=== PATIENT | male | born 1940 | race Caucasian/White ===

== ENCOUNTER → 2017-11-07 | Outpatient (CLI) | payer MEDICARE | LOC: M ONCR 09:55 | DX: C02.9 Malignant neoplasm of tongue, unspecified (principal); C06.0 Malignant neoplasm of cheek mucosa; C67.0 Malignant neoplasm of trigone of bladder | CPT/HCPCS: G0463 ==

== ENCOUNTER 2017-11-18 07:34 | Day surgery (SDC) | payer MEDICARE ==
[2017-11-18] MEDS: LR 1,000 ML IV (08:40)
[2017-11-18] MEDS ORDERED: fentaNYL 100 MCG/2 ML INJECTION (J3010) As Ordered (08:58)
[2017-11-18] MEDS ORDERED: PROPOFOL 200 MG/20 ML VIAL As Ordered (08:58)
[2017-11-18] MEDS ORDERED: MIDAZOLAM INJ 2 MG/2 ML VIAL (J2250) As Ordered (08:58)
[2017-11-18] MEDS: BUPIVACAINE HCL 0.25% 30 ML VIAL As Ordered (09:15)
[2017-11-18] MEDS: LIDOCAINE 1% SDV INJ 30 ML VIAL As Ordered (09:15)
[2017-11-18] MEDS ORDERED: METOCLOPRAMIDE INJ 10MG/2ML VIAL (J2765) As Ordered (09:45)
[2017-11-18] MEDS ORDERED: dexameTHASONE 4 MG/ML 1ML VIAL (J1100) As Ordered (13:54)
[2017-11-18] MEDS ORDERED: ONDANSETRON 4MG/2ML VIAL (J2405) As Ordered (13:54)
[2017-11-18] MEDS ORDERED: HYDROmorphone HCL 2 MG/ML 1ML VIAL (J1170) As Ordered (14:52)
[2017-11-18] MEDS ORDERED: ESMOLOL INJ 100MG/10ML VIAL As Ordered (15:03)
[2017-11-18] MEDS ORDERED: GLYCOPYRROLATE INJ 0.2 MG/ML 2 ML VIAL As Ordered (15:25)
[2017-11-18] MEDS ORDERED: PHENYLephrine HCL 500 MCG/5 ML (100MCG/ML) SYRINGE (J2370) As Ordered (17:10)
== END 2017-11-18 11:55 | disposition home or self-care (01) ==
LOC: M SDC 07:34
DX: C01 Malignant neoplasm of base of tongue (principal); I10 Essential (primary) hypertension; E78.5 Hyperlipidemia, unspecified; K21.9 Gastro-esophageal reflux disease without esophagitis; Z85.46 Personal history of malignant neoplasm of prostate; Z92.3 Personal history of irradiation; Z79.899 Other long term (current) drug therapy; G47.30 Sleep apnea, unspecified; Z79.82 Long term (current) use of aspirin; Z87.891 Personal history of nicotine dependence
CPT/HCPCS: 43246

== ENCOUNTER → 2017-11-19 | Outpatient (CLI) | payer MEDICARE | LOC: M PLARAD 12:12 | DX: C01 Malignant neoplasm of base of tongue (principal) | CPT/HCPCS: 78815 ==

== ENCOUNTER 2017-11-26 08:47 | Outpatient (RCR) | payer MEDICARE | END 2017-12-10 | LOC: M ONCR 08:47 | DX: C02.9 Malignant neoplasm of tongue, unspecified (principal); C06.2 Malignant neoplasm of retromolar area; C06.0 Malignant neoplasm of cheek mucosa | CPT/HCPCS: 77300 ==

== ENCOUNTER 2017-12-11 11:25 | Outpatient (RCR) | payer MEDICARE | END 2018-01-10 | LOC: M ONCR 11:25 | DX: C02.9 Malignant neoplasm of tongue, unspecified (principal); C06.2 Malignant neoplasm of retromolar area; C06.0 Malignant neoplasm of cheek mucosa | CPT/HCPCS: 77336 ==

== ENCOUNTER 2018-01-14 10:16 | Outpatient (RCR) | payer MEDICARE | END 2018-02-09 | LOC: M ONCR 10:16 | DX: C02.9 Malignant neoplasm of tongue, unspecified (principal); C06.2 Malignant neoplasm of retromolar area; C06.0 Malignant neoplasm of cheek mucosa | CPT/HCPCS: 77300 ==

== ENCOUNTER → 2018-02-26 | Outpatient (CLI) | payer MEDICARE ==
[~2018-02-26] MED LIST: ASPI1TAB15 PO; ATOR1TAB21 PO; LIDO1SOL7 PO; PANT40TA3 PO; SERT50TA PO; VALS1TAB47 PO
--- NOTE | 2018-02-27 15:03 | RADONC ---
RADIATION ONCOLOGY FOLLOWUP NOTE DATE: 02/26/2018 CHART NUMBER: [id number] DIAGNOSIS: Tongue cancer. 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 ECOG PERFORMANCE STATUS: 0. FOLLOWUP NOTE: Mr. 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 The patient presents today reporting that he is doing quite well with no complaints at this time related to his radiation therapy or disease other than some difficulty swallowing solid foods. The patient is able to eat and has not used his feeding tube at all over the past couple of weeks. He is able to take his pills and other medications by mouth. The patient's review of systems is positive for some difficulty swallowing dry solid foods but is otherwise noncontributory. He denies nausea, vomiting, fevers, chills, night sweats, diplopia, headaches, anxiety or depression, anorexia, weight loss, visual disturbances, chest pain, urinary or bowel difficulties, bone pain, or neurological problems. PHYSICAL EXAMINATION: The patient's skin is in good condition with no evidence of moist or dry desquamation present. His oral cavity shows no evidence of mucositis. There is no palpable preauricular, cervical, supraclavicular, infraclavicular or axillary lymphadenopathy present. His lungs are clear to auscultation and percussion. ASSESSMENT: The patient is clinically SORAIDA at this time. He is scheduled to be seen every [address] Snider. In light of the patient's close followup with Dr. Snider I have discharged him from our followup except on a as needed basis. He will also continue to be followed by his other physicians as well. cc: MD Christopher Curtis MD
== END ==
LOC: M ONCR 10:25
PROVIDERS: ATTEND Radiology Radiation Oncology
DX: C02.9 Malignant neoplasm of tongue, unspecified (principal); C06.2 Malignant neoplasm of retromolar area; C06.0 Malignant neoplasm of cheek mucosa

== ENCOUNTER → 2018-03-27 | Outpatient (REF) | payer MEDICARE ==
[2018-03-27 17:53] LABS: APPEARANCE, URINE CLEAR (CLEAR); BACTERIA, URINE AUTO NEGATIVE (NEGATIVE); BILIRUBIN, URINE AUTO NEGATIVE (NEGATIVE); BLOOD, URINE BLOOD NEGATIVE (NEGATIVE); COLOR, URINE YELLOW (YELLOW); GLUCOSE, URINE (UA) AUTO NEGATIVE (NEGATIVE); KETONE, URINE AUTO NEGATIVE (NEGATIVE); LEUKOCYTE ESTERASE, URINE AUTO NEGATIVE (NEGATIVE); MUCUS, URINE SMALL (NEGATIVE); NITRITE, URINE AUTO NEGATIVE (NEGATIVE); PROTEIN, URINE AUTO NEGATIVE (NEGATIVE); RBC, URINE AUTO 2 /HPF (0-3); SPECIFIC GRAVITY URINE AUTO 1.006 (1.002-1.035); SQUAMOUS EPITHELIAL CELL UR AU 0 /HPF (0-6); UROBILINOGEN, URINE AUTO 0.2 mg/dL (0.0-2.0); WBC, URINE AUTO 3 /HPF (0-3)
== END ==
LOC: M SMT 17:09
DX: N41.9 Inflammatory disease of prostate, unspecified (principal)
CPT/HCPCS: 81001

== ENCOUNTER → 2018-05-29 | Day surgery (SDC) | payer MEDICARE ==
[~2018-05-29] VITALS: Ht 175.3 cm; Wt 73.5 kg
[~2018-05-29] MED LIST changes: +ACETAMINOPHEN TAB 650MG DOSE (2X325MG) PO PRN; +LABETALOL HCL 100 MG/20 ML VIAL As Ordered ONE; +LIDOCAINE 2% INJ 100 MG/5 ML SDV (FOR ANES.) As Ordered ONE; +LR 1,000 ML IV ONE; +LR 1,000 ML IV SCH; +MEPERIDINE INJ 25 MG/ML VIAL (J2175) IV PRN; +METOCLOPRAMIDE INJ 10MG/2ML VIAL (J2765) IV PRN; +MIDAZOLAM INJ 2 MG/2 ML VIAL (J2250) As Ordered ONE; +ONDANSETRON 4MG/2ML VIAL (J2405) As Ordered ONE; +ONDANSETRON 4MG/2ML VIAL (J2405) IV PRN; +PERCOCET 5MG/325MG TAB PO PRN; +PROPOFOL 200 MG/20 ML VIAL As Ordered ONE; +ROCURONIUM BROMIDE 50 MG/5 ML VIAL As Ordered ONE; +SUGAMMADEX SODIUM 500 MG/5 ML VIAL (BRIDION) As Ordered ONE; +dexameTHASONE 4 MG/ML 1ML VIAL (J1100) As Ordered ONE; +fentaNYL 100 MCG/2 ML INJECTION (J3010) As Ordered ONE; +fentaNYL 100 MCG/2 ML INJECTION (J3010) IV PRN
[2018-05-29 11:29] LABS: INR 0.95; PROTHROMBIN TIME 12.8 SECONDS (12.1-14.4)
[2018-05-29 11:30] LABS: PARTIAL THROMBOPLASTIN TIME 32.5 SECONDS (25.4-37.6)
[2018-05-29 15:39] VITALS: BP 134/89
--- NOTE | 2018-05-30 07:17 | RO ---
DATE OF PROCEDURE: 05/29/2018 PREPROCEDURE DIAGNOSIS: Bladder mass. POSTPROCEDURE DIAGNOSIS: Bladder mass. PROCEDURE: Cystoscopy with bladder biopsies. SURGEON: Dr. Mu Chinchilla [employer]: None. ANESTHESIA: General. OPERATIVE INDICATIONS: This is a 77-year-old male who on recent office cystoscopy was found to have a moderate amount of red abnormal appearing mucosa in the bilateral wall of the bladder. He was brought to the operating room today for biopsies of this area. DESCRIPTION OF PROCEDURE: The patient was brought to the operating room and general anesthesia was induced. Prophylactic antibiotics infused. He was placed in the dorsal lithotomy position and prepped and draped in the usual sterile fashion. At this point a rigid cystoscope was inserted through the urethral meatus and advanced to the bladder. The bladder was thoroughly examined and the only abnormality seen other than trabeculation was a patch of red mucosa on the right lateral wall. Three biopsies of this area were obtained to be sent or pathologic analysis. This was done with the loop. The area of resection was then cauterized obtaining good hemostasis. Once satisfied hemostasis, the three biopsies were removed and the bladder was emptied of all fluid and this marked the conclusion of the procedure. The patient was then taken out of the dorsal lithotomy position, awakened from anesthesia and transferred to the recovery room in stable condition. ESTIMATED BLOOD LOSS: 5 mL. COMPLICATIONS: None. SPECIMENS: Bladder biopsies. PLAN: The patient will followup in the clinic in approximately 1 week to discuss pathology results.
== END | disposition home or self-care (01) ==
LOC: M SDC 10:44
PROVIDERS: ATTEND Urology
DX: C67.9 Malignant neoplasm of bladder, unspecified (principal); I10 Essential (primary) hypertension; E78.00 Pure hypercholesterolemia, unspecified; K21.9 Gastro-esophageal reflux disease without esophagitis; I69.998 Other sequelae following unspecified cerebrovascular disease; G47.33 Obstructive sleep apnea (adult) (pediatric); J30.89 Other allergic rhinitis; Z79.899 Other long term (current) drug therapy; Z79.82 Long term (current) use of aspirin; Z92.3 Personal history of irradiation; Z85.46 Personal history of malignant neoplasm of prostate
CPT/HCPCS: 36415; 52204; 85610; 85730; 88305; J0690; J1100; J2250; J2405; J3010

== ENCOUNTER → 2018-11-10 | Outpatient (REF) | payer MEDICARE ==
[~2018-11-10] MED LIST changes: -ACETAMINOPHEN TAB 650MG DOSE (2X325MG) PO PRN; -LABETALOL HCL 100 MG/20 ML VIAL As Ordered ONE; -LIDO1SOL7 PO; +LIDO1SOL8 PO; -LIDOCAINE 2% INJ 100 MG/5 ML SDV (FOR ANES.) As Ordered ONE; -LR 1,000 ML IV ONE; -LR 1,000 ML IV SCH; -MEPERIDINE INJ 25 MG/ML VIAL (J2175) IV PRN; -METOCLOPRAMIDE INJ 10MG/2ML VIAL (J2765) IV PRN; -MIDAZOLAM INJ 2 MG/2 ML VIAL (J2250) As Ordered ONE; -ONDANSETRON 4MG/2ML VIAL (J2405) As Ordered ONE; -ONDANSETRON 4MG/2ML VIAL (J2405) IV PRN; -PERCOCET 5MG/325MG TAB PO PRN; -PROPOFOL 200 MG/20 ML VIAL As Ordered ONE; -ROCURONIUM BROMIDE 50 MG/5 ML VIAL As Ordered ONE; +SERT-141 PO; -SERT50TA PO; -SUGAMMADEX SODIUM 500 MG/5 ML VIAL (BRIDION) As Ordered ONE; -VALS1TAB47 PO; +VALS1TAB67 PO; -dexameTHASONE 4 MG/ML 1ML VIAL (J1100) As Ordered ONE; -fentaNYL 100 MCG/2 ML INJECTION (J3010) As Ordered ONE; -fentaNYL 100 MCG/2 ML INJECTION (J3010) IV PRN
== END ==
LOC: M SMT 12:59
PROVIDERS: ATTEND Urology
DX: C67.9 Malignant neoplasm of bladder, unspecified (principal)